=== PATIENT | female | born 1990 | race Caucasian/White ===

== ENCOUNTER 2018-12-08 23:49 | Emergency (ER) | payer BC, OTHER ==
--- NOTE | 2018-12-09 00:33 | ED ---
Female Urogenital HPI - General Chief complaint: Vaginal Bleeding Stated complaint: 5 wks preg bleeding Time Seen by Provider: 12/09/18 00:07 Source: patient, family Mode of arrival: ambulatory Limitations: no limitations - History of Present Illness Initial comments: Rosy is a female who believes she is currently 5-6 weeks , has not had any pre- care yet. She reports she began having dark vaginal bleeding and some lower abdominal cramping earlier today. She reports she's passed small clots but nothing that she places product of conception. Patient reports that the spotting has continued throughout the evening which prompted her to come to the ER for evaluation. Patient has not seen an OB or had an ultrasound of this yet. She is uncertain of what her blood type is, she is uncertain if she received rhogam her previous . - Related Data Allergies Allergy/AdvReac Type Severity Reaction Status Date / Time No Known Allergies Allergy Verified 12/08/18 23:56 Review of Systems ROS Statement: Those systems with pertinent positive or pertinent negative responses have been documented in the HPI. ROS Other: All systems not noted in ROS Statement are negative. Past Medical History Past Medical History: No Reported History History of Any Multi-Drug Resistant Organisms: None Reported Additional Past Surgical History / Comment(s): breast reduction Past Psychological History: No Psychological Hx Reported Smoking Status: Never smoker Past Alcohol Use History: None Reported Past Drug Use History: None Reported General Exam - General Exam Comments Initial Comments: Physical Exam GENERAL: Patient is well-developed and well-nourished. Patient is nontoxic and well- hydrated and is in no distress. HENT: Normocephalic, Atraumatic. EYES: PERRL, EOMI PULMONARY: Unlabored respirations. No audible rales rhonchi or wheezing was noted. CARDIOVASCULAR: There is a regular rate and rhythm without any murmurs gallops or rubs. ABDOMEN: Soft and nontender with normal bowel sounds. SKIN: Skin is clear with no lesions or rashes and otherwise unremarkable. : Normal External genitalia Dark blood and vaginal vault Closed cervical os, no active bleeding, no chandelier sign or tenderness to palpation of the bilateral ovaries NEUROLOGIC: Patient is alert and oriented x3. Moving all extremities spontaneously MUSCULOSKELETAL: Normal extremities with adequate strength and full range of motion. No lower extremity swelling or edema. No calf tenderness. PSYCHIATRIC: Normal psychiatric evaluation. Limitations: no limitations Limitations: no limitations Course Vital Signs 12/08/18 12/09/18 23:51 01:49 Temperature 98.4 F 98.3 F Pulse Rate 96 72 Respiratory 20 18 Rate Blood Pressure 150/83 137/84 O2 Sat by Pulse 100 99 Oximetry Medical Decision Making - Medical Decision Making The patient was seen and evaluated history is obtained from the patient and review of medical record Vital signs stable Patient with a positive test last week, no care yet presenting with dark bleeding Patient was last sexually active 2-3 days ago Patient has no concern for sexual transmitted infections Labs, US ordered BHCG 429 US with no definitive - noted corpus leutum cyst Results discussed with patient, she was advised to follow up with PCP or OB for repeat BHCG levels Return parameters discussed All questions pertaining to care answered and the patient was discharged home in stable condition. - Lab Data Lab Results 12/09/18 12/09/18 12/09/18 Range/Units 00:25 00:25 00:25 HCG, Quant 429.4 mIU/mL Trichomonas Ag (Rapid) Negative (Negative) Blood Type A Positive Blood Type Recheck No Disposition Clinical Impression: Vaginal bleeding affecting early Disposition: HOME SELF-CARE Instructions (If sedation given, give patient instructions): Threatened Miscarriage (ED) Additional Instructions: Your BHCG ( hormone) is 429 today, this needs to continue to be monitored by your PCP or OB Is patient prescribed a controlled substance at d/c from ED?: No Referrals: Trixie Hannon MD [Primary Care Provider] - 1-2 days
--- NOTE | 2018-12-09 01:33 | US ---
EXAM: US , Transvaginal CLINICAL HISTORY: ITS.REASON US Reason: pain TECHNIQUE: Real-time transvaginal obstetrical ultrasound of the maternal pelvis and a first trimester with image documentation. Transvaginal imaging was used for better evaluation of the fetus and adnexa. COMPARISON: No relevant prior studies available. FINDINGS: 2 mm nonspecific cystic focus in the endometrium. No definite intrauterine gestation. No adnexal mass. Hemorrhagic corpus luteum cyst in the left ovary measuring 2 cm. No free fluid. Right ovary is unremarkable. IMPRESSION: Tiny cystic focus in the endometrium is nonspecific. No definite intrauterine gestation at this time. No adnexal mass. Hemorrhagic left adnexal corpus luteum cyst. MTDD
[2018-12-09 02:04] VITALS: BP 137/84; PULSE 72; RESP 18; TEMP 98.3
[2018-12-11 15:45] LABS: C. trachomatis,PCR Negative (Neg,Equiv); Chlamydia trachomatis Source Vagina
[2018-12-11 15:49] LABS: N. gonorrhoeae,PCR Negative (Neg,Equiv); Neisseria Source Vagina
== END 2018-12-09 01:51 | disposition home or self-care (01) ==
LOC: EC 23:49
DX: O20.8 Other hemorrhage in early pregnancy (principal); N83.12 Corpus luteum cyst of left ovary
CPT/HCPCS: 36415; 76801; 76817; 84702; 86900; 86901; 87070; 87205; 87491; 87591; 87808; 99284

== ENCOUNTER → 2018-12-20 | Outpatient (CLI) | payer BC | END | disposition home or self-care (01) | LOC: LABWHC1 11:59 | PROVIDERS: ATTEND Obstetrics & Gynecology | DX: O20.0 Threatened abortion (principal); Z3A.00 Weeks of gestation of pregnancy not specified | CPT/HCPCS: 36415; 84702 ==

== ENCOUNTER → 2018-12-22 | Outpatient (CLI) | payer BC | LOC: LABWHC1 12:28 | PROVIDERS: ATTEND Obstetrics & Gynecology | DX: O20.0 Threatened abortion (principal) | CPT/HCPCS: 36415; 84702 ==

== ENCOUNTER 2018-12-26 16:44 | Observation (INO) | payer BC ==
[2018-12-26] MEDS ORDERED: SODIUM CHLORIDE 0.9% 1,000 ML IV ONE (16:58)
--- NOTE | 2018-12-26 17:34 | ED ---
Abdominal Pain HPI - General Chief Complaint: OB/Uterine Contractions Stated Complaint: ectopic Time Seen by Provider: 12/26/18 16:49 Source: patient, EMS, RN notes reviewed, old records reviewed Mode of arrival: EMS Limitations: no limitations - History of Present Illness Initial Comments: Patient is a 28-year-old female, G2, P1 approximately 7 weeks who presents emergency department today for ectopic . Patient was seen at [facility] and transferred here for PROGRAM ENGAGEMENT DIRECTOR consult. Patient reports that she's been having vaginal bleeding for the past 2 weeks. She's had intermittent follow-ups with her PROGRAM ENGAGEMENT DIRECTOR Dr. Avendaño and Dr. Galloway. She is not seen them in person but has had outpatient lab work to try and her hCG levels. Patient states that she has had left-sided abdominal pain. - Related Data Home Medications Medication Instructions Recorded Confirmed No Known Home Medications 12/26/18 12/26/18 Allergies Allergy/AdvReac Type Severity Reaction Status Date / Time No Known Allergies Allergy Verified 12/26/18 18:38 Review of Systems ROS Statement: Those systems with pertinent positive or pertinent negative responses have been documented in the HPI. ROS Other: All systems not noted in ROS Statement are negative. Past Medical History Past Medical History: No Reported History History of Any Multi-Drug Resistant Organisms: None Reported Additional Past Surgical History / Comment(s): breast reduction Past Psychological History: No Psychological Hx Reported Smoking Status: Current every day smoker Past Alcohol Use History: None Reported Past Drug Use History: None Reported General Exam - General Exam Comments Initial Comments: 28-year-old female. Alert and oriented 3. Patient appears in moderate discomfort. Limitations: no limitations General appearance: alert, in no apparent distress Head exam: Present: atraumatic, normocephalic, normal inspection Eye exam: Present: normal appearance, PERRL, EOMI. Absent: scleral icterus, conjunctival injection, periorbital swelling ENT exam: Present: normal exam, mucous membranes moist Neck exam: Present: normal inspection. Absent: tenderness, meningismus, lymphadenopathy Respiratory exam: Present: normal lung sounds bilaterally. Absent: respiratory distress, wheezes, rales, rhonchi, stridor Cardiovascular Exam: Present: regular rate, normal rhythm, normal heart sounds. Absent: systolic murmur, diastolic murmur, rubs, gallop, clicks GI/Abdominal exam: Present: tenderness (Left-sided abdominal tenderness), normal bowel sounds. Absent: soft, distended, guarding, rebound, rigid Back exam: Present: normal inspection Neurological exam: Present: alert, oriented X3, CN II-XII intact Psychiatric exam: Present: normal affect, normal mood Course Vital Signs 12/26/18 12/26/18 12/26/18 16:47 16:49 17:00 Temperature 98.1 F Pulse Rate 79 77 Respiratory 16 Rate Blood Pressure 140/81 127/83 O2 Sat by Pulse 100 100 99 Oximetry 12/26/18 12/26/18 12/26/18 17:30 18:00 18:30 Temperature Pulse Rate 68 68 87 Respiratory Rate Blood Pressure 125/77 127/70 123/69 O2 Sat by Pulse 98 98 97 Oximetry Medical Decision Making - Medical Decision Making 28-year-old female transferred from [facility] for ectopic . She is . Patient is approximately 7 weeks . Ultrasound performed earlier today showed findings compatible with a left adnexal live ectopic with pole demonstrating crown-rump length compatible with 6 weeks and 5 days. Heart rate was 132 beats were minute. This is favored to be paraovarian is there is minimal adjacent ovarian tissue. Her hemoglobin at this time is 13.0. Type and screen is obtained. Pain is managed after 4 mg of morphine from [facility]. She is reporting vaginal bleeding and heavy clots at this time. is a positive blood type. HCG level is 9600 at this time. Case discussed with Dr. Segundo who is discussing with on-call PROGRAM ENGAGEMENT DIRECTOR. Patient was evaluated by Dr. Galloway and will be going to the operating room this evening for laparoscopic ectopic removal - Radiology Data Radiology results: report reviewed Ultrasound shows ectopic at the left adnexa adjacent to the left ovary measured 2.9 x 2.0 x 2.17 m with a heart rate of 1 62 bpm. Disposition Clinical Impression: Ectopic Disposition: ADMITTED IP TO THIS HOSP Condition: Stable Is patient prescribed a controlled substance at d/c from ED?: No Referrals: Trixie Hannon MD [Primary Care Provider] - 1-2 days Time of Disposition: 19:27
[2018-12-26] MEDS ORDERED: MORPHINE SULFATE 4 MG/ML SYRINGE IVP STA (18:48)
--- NOTE | 2018-12-26 19:02 | US ---
EXAMINATION TYPE: Transabdominal DATE OF EXAM: 12/26/2018 6:34 PM COMPARISON: NONE CLINICAL HISTORY: Ectopic . Bleeding and pain. EXAM PERFORMED: Transabdominal (TA) EXAM MEASUREMENTS: GESTATIONAL AGE / DATING Physician Established: (7 weeks/5 days) EDC: 08/09/2019 Dates by LMP: (7 weeks/5 days) EDC: 08/09/2019 Dates by First Scan: Unable to date first scan. ( Dates by Current Scan for: (6 weeks/4 days) EDC: 08/17/2019 MATERNAL ANATOMY Uterus: 9.5 x 3.8 x 5.2 cm Right Ovary: 2.8 x 1.7 x 1.7cm Left Ovary: 1.8 x 1.7 x 1.6cm Post CDS / Adnexa: Viable ectopic left adnexa adjacent to left ovary 2.9 x 2.0 x 2.1cm with HR 162BPM . Presence of free fluid: No Presence of corpus luteal cyst: no GESTATION / SURVEY CRL: 0.67cm (6 weeks/4 days) Yolk Sac (normal less than 6mm): 3mm Heart Rate: 162 bpm Beta HcG (if available): Not available at this time IMPRESSION: VIABLE ECTOPIC LEFT ADNEXA ADJACENT TO LEFT OVARY 2.9 X 2.0 X 2.1CM; HR 162 BRM.
[2018-12-26] MEDS: SODIUM CHLORIDE 0.9% 1,000 ML IV SCH (19:11)
[2018-12-26] MEDS ORDERED: NALOXONE 0.4 MG/ML 1 ML VIAL IV PRN (19:27)
[2018-12-26] MEDS ORDERED: KETOROLAC 30 MG/ML 1 ML VIAL IVP PRN (19:27)
[2018-12-26] MEDS ORDERED: MORPHINE SULFATE 4 MG/ML SYRINGE IV PRN (19:27)
[2018-12-26] MEDS ORDERED: ONDANSETRON 4 MG/2 ML VIAL IVP PRN (19:27)
--- NOTE | 2018-12-26 19:44 | P.HPOB ---
History of Present Illness H&P Date: 12/26/18 Chief Complaint: Vaginal bleeding This is a 28-year-old 2 para 1001 woman with a last menstrual period unknown who had a positive test at home around approximately December 03. She has had intermittent vaginal bleeding. She presents today with worsening left lower abdominal pain. Beta hCGs drawn on 12/20/2018: 5280, 12/22: 6417, and today at 9664. Pelvic ultrasound confirms presence of a left adnexal ectopic measuring 2.9 cm in greatest diameter. There is a heart rate of approximately 160 bpm in this mass. There is no free fluid in the pelvis. Endometrial mildly thickened. Patient's social history is significant for previous normal spontaneous vaginal delivery 6 years ago. This is an unplanned and she is not using contraception. She otherwise is healthy using only an occasional inhaler for asthma. Review of Systems Constitutional: Denies chills, Denies fever Cardiovascular: Denies chest pain, Denies shortness of breath Respiratory: Denies cough Gastrointestinal: Reports abdominal pain, Denies BRBPR, Denies change in bowel habits, Denies nausea, Denies vomiting Genitourinary: Reports abnormal vaginal bleeding, Reports Integumentary: Denies rash Neurological: Denies headaches Hematologic/Lymphatic: Denies easy bleeding, Denies easy bruising Past Medical History Past Medical History: No Reported History, Asthma History of Any Multi-Drug Resistant Organisms: None Reported Additional Past Surgical History / Comment(s): breast reduction Past Psychological History: No Psychological Hx Reported Smoking Status: Current every day smoker Past Alcohol Use History: None Reported Past Drug Use History: None Reported Medications and Allergies Home Medications Medication Instructions Recorded Confirmed Type No Known Home Medications 12/26/18 12/26/18 History Allergies Allergy/AdvReac Type Severity Reaction Status Date / Time No Known Allergies Allergy Verified 12/26/18 18:38 Exam Vital Signs Temp Pulse Resp BP Pulse Ox 12/26/18 18:30 87 123/69 97 12/26/18 18:00 68 127/70 98 12/26/18 17:30 68 125/77 98 12/26/18 17:00 77 127/83 99 12/26/18 16:49 100 12/26/18 16:47 98.1 F 79 16 140/81 100 Intake and Output 12/26/18 12/26/18 12/26/18 06:59 14:59 22:59 Other: Weight 86.183 kg In general this is a pleasant female in no acute distress. HEENT exam is unremarkable. Breathing is unlabored and the heart is a regular rate and rhythm. The abdomen is soft and nontender with no rebound, no guarding and no flank pain. Pelvic examination is deferred however was performed recently at the [facility] emergency room and was unremarkable. Neurologically she is grossly intact and behavior and affect are normal. Skin is free of any gross lesions or rash. Results US - abdomen: report reviewed Assessment and Plan (1) Ectopic Current Visit: Yes Status: Acute Code(s): O00.90 - UNSPECIFIED ECTOPIC WITHOUT INTRAUTERINE SNOMED Code(s): 10175840 (2) Vaginal bleeding affecting early Current Visit: No Status: Acute Code(s): O20.8 - OTHER HEMORRHAGE IN EARLY SNOMED Code(s): 545137151 Plan: This is a 28-year-old 2 para 1001 woman with a left ectopic . I reviewed the findings on ultrasound and hCG with the patient in detail. Based on the elevated hCG level I do not believe she is appropriate candidate for methotrexate. I have recommended diagnostic laparoscopy with probable left salpinx and objectively, possible left salpingostomy possible laparotomy and or other indicated surgeries. I reviewed the risks of this procedure which include bleeding, transfusion, laparotomy, damage to bowel, bladder, ureters, uterus, ovaries and other pelvic or abdominal structures. Patient understands these risks, all questions are answered and consent is obtained. The OR team has been notified and we will proceed as planned.
[2018-12-26] MEDS ORDERED: MIDAZOLAM 2 MG/2 ML VIAL ONE (20:23)
[2018-12-26] MEDS ORDERED: ROCURONIUM BROMIDE 10 MG/ML 10 ML VIAL IV ONE (20:23)
[2018-12-26] MEDS ORDERED: KETOROLAC 30 MG/ML 1 ML VIAL ONE (20:23)
[2018-12-26] MEDS ORDERED: SUCCINYLCHOLINE CHLORIDE 100 MG/5 ML SYR IV ONE (20:23)
[2018-12-26] MEDS ORDERED: NEOSTIGMINE 1 MG/ML 10 ML VIAL ONE (20:23)
[2018-12-26] MEDS ORDERED: ONDANSETRON 4 MG/2 ML VIAL ONE (20:23)
[2018-12-26] MEDS ORDERED: HYDROmorphone (PF) 1 MG/ML ONE (20:23)
[2018-12-26] MEDS ORDERED: DEXAMETHASONE SOD PHOS (MDV) 100 MG/10 ML VIAL ONE (20:23)
[2018-12-26] MEDS ORDERED: fentaNYL (PF) 50 MCG/ML 2 ML AMP ONE (20:23)
[2018-12-26] MEDS ORDERED: GLYCOPYRROLATE 0.2 MG/ML 2 ML VIAL ONE (20:23)
[2018-12-26] MEDS ORDERED: LIDOCAINE 1% INJ 10MG/ML (20 ML MDV) ONE (20:23)
[2018-12-26] MEDS ORDERED: PROPOFOL 10 MG/ML 20 ML VIAL IV ONE (20:23)
[2018-12-26] MEDS ORDERED: LACTATED RINGERS 1,000 ML IV ONE (20:27)
[2018-12-26] MEDS ORDERED: ceFAZolin 1,000 MG VIAL IVPB ONE (20:42)
[2018-12-26] MEDS ORDERED: BUPIVACAINE (PF) 0.25% 30 ML VIAL SQ ONE ×2 (20:48→21:13)
--- NOTE | 2018-12-26 21:16 | P.OP ---
Date of Procedure: 12/26/18 Preoperative Diagnosis: Left ectopic Postoperative Diagnosis: Same Procedure(s) Performed: Diagnostic laparoscopy with left salpingectomy Anesthesia: KIANA Surgeon: Joan Galloway Estimated Blood Loss (ml): 5 IV fluids (ml): 500 Urine output (ml): 50 Pathology: other (Left fallopian tube) Condition: stable Disposition: PACU Indications for Procedure: Left adnexal ectopic with beta hCG greater than 9000 and heart tones present Operative Findings: Distorted and enlarged left fallopian tube consistent with ectopic . No hemoperitoneum. Normal-appearing left ovary, right fallopian tube and right ovary. Description of Procedure: After the patient was brought up from the emergency room, she was taken to the operating room where anesthetic was administered without incident. She was in positioned, prepped and draped in the dorsal lithotomy position. Bladder was drained for approximately 50 mL of clear urine. Speculum was placed in the vagina and the cervix was grasped anteriorly with a single-tooth tenaculum. Holden uterine manipulator was placed. Gloves were changed and attention was turned to the abdomen. A 10 mm infraumbilical skin incision was made. The abdomen was grasped and elevated. The various needle was inserted without difficulty. Saline drop test indicated intraperitoneal placement. Initial filling pressure with CO2 gas was 0 mm. The abdomen was then insufflated to a total filling pressure of 15 mm. The platelets optical trocar was then utilized to introduce a 10 mm scope. Intraperitoneal placement was noted. The uterus was elevated and the above findings were noted. There was a small clot noted in the pelvis but no other hemoperitoneum. The patient was then placed in moderate Trendelenburg. Under direct visualization a 5 mm suprapubic port and 10 mm right sided port were placed. The LigaSure cautery device was introduced. The left fallopian tube was elevated and the left mesosalpinx was sequentially cauterized and cut amputating the fallopian tube and ectopic . This was placed into an Endo Catch bag and was removed intact. The surgical site was inspected and noted to be hemostatic. The abdomen was desufflated and surgical site was again inspected with no active bleeding noted. Under direct visualization the suprapubic and right sided ports were removed. The abdomen was desufflated of CO2 gas and the camera was removed. All ports were closed with 4-0 Vicryl suture in a subcuticular fashion. Entrance removed from the vagina. Patient was awoken from anesthetic without incident and transported to recovery in stable condition. All counts reported to me as correct by the operating room staff
[2018-12-26] MEDS: HYDROmorphone 1 MG/ML 1 ML SYRINGE IVP ONE ×2 (21:32→21:36)
[2018-12-26] MEDS ORDERED: diphenhydrAMINE 50 MG/ML 1 ML VIAL IVP ONE (21:48)
[2018-12-26 22:22] VITALS: BMI 31.6
[2018-12-26] MEDS ORDERED: IBUPROFEN 800 MG TAB PO PRN (22:48)
[2018-12-26] MEDS ORDERED: ACETAMINOPHEN IV (For NPO) 1,000 MG in EMPTY BAG 1 BAG IVPB ONE (23:00)
[2018-12-26 23:47] VITALS: RESP 18
[2018-12-27 05:34] VITALS: TEMP 98.2
[2018-12-27] MEDS: SODIUM CHLORIDE 0.9% 1,000 ML IV SCH (05:43)
[2018-12-27 08:19] VITALS: BP 125/74; PULSE 87
== END 2018-12-27 07:35 | disposition home or self-care (01) ==
LOC: EC 16:44 → 4FBP 19:27
PROVIDERS: ADMIT Obstetrics & Gynecology; ATTEND Obstetrics & Gynecology
DX: O00.102 Left tubal pregnancy without intrauterine pregnancy (principal); J45.909 Unspecified asthma, uncomplicated; F17.210 Nicotine dependence, cigarettes, uncomplicated; K04.7 Periapical abscess without sinus
CPT/HCPCS: 59151; 96361; 96374; 99285; 86900; 86901; 88305; 76801; 76817; G0378 ×2; J2250; J2270; J1200; J2710; J2405; J0690; J2001; J3010; J1885; J1170; J1100; J0131; J0330; J2704

== ENCOUNTER 2023-11-13 15:00 | Emergency (ER) | payer BC, OTHER ==
--- NOTE | 2023-11-13 15:14 | ED ---
Female Urogenital HPI - General Chief complaint: Urogenital Stated complaint: STD Test Time Seen by Provider: 11/13/23 15:04 Source: patient, RN notes reviewed Mode of arrival: ambulatory Limitations: no limitations - History of Present Illness Initial comments: Patient is a 33-year-old female presented ER with chief complaint of vaginal discharge. Patient reports that she is having a yellow foul-smelling discharge for over a week. Patient now is endorsing abdominal cramping. Patient states that she is now tender and itchy to her peritoneal area. Patient reports last week she believes she was running a fever. She believes she was exposed to an STI but is not sure which one. Denies any chest pain, shortness of breath, peripheral edema. Last Menstrual Period: 10/30/23 - Related Data Previous Rx's Medication Instructions Recorded Ibuprofen 800 mg PO Q8HR PRN #30 tablet 12/26/18 Doxycycline [Vibramycin] 100 mg PO BID 14 Days #28 capsule 11/13/23 metroNIDAZOLE [Flagyl] 500 mg PO BID 14 Days #28 tab 11/13/23 Allergies Allergy/AdvReac Type Severity Reaction Status Date / Time Penicillins Allergy Rash/Hives Verified 11/13/23 15:04 Review of Systems ROS Statement: Those systems with pertinent positive or pertinent negative responses have been documented in the HPI. ROS Other: All systems not noted in ROS Statement are negative. Past Medical History Past Medical History: No Reported History, Asthma History of Any Multi-Drug Resistant Organisms: None Reported Additional Past Surgical History / Comment(s): breast reduction Past Psychological History: No Psychological Hx Reported Past Alcohol Use History: None Reported Past Drug Use History: None Reported - Past Family History Father Family Medical History: No Reported History General Exam Limitations: no limitations General appearance: alert, in no apparent distress Respiratory exam: Present: normal lung sounds bilaterally. Absent: respiratory distress, wheezes, rales, rhonchi, stridor Cardiovascular Exam: Present: regular rate, normal rhythm, normal heart sounds. Absent: systolic murmur, diastolic murmur, rubs, gallop, clicks GI/Abdominal exam: Present: soft, tenderness (suprapubic), normal bowel sounds. Absent: distended, guarding, rebound, rigid External exam: Present: normal external exam Speculum exam: Present: cervical discharge (thick white) By manual exam: Present: cervical motion tenderness Neurological exam: Present: alert, oriented X3, CN II-XII intact Psychiatric exam: Present: normal affect, normal mood Skin exam: Present: warm, dry, intact, normal color. Absent: rash Course Vital Signs 11/13/23 11/13/23 15:01 16:24 Temperature 98.2 F 98.6 F Pulse Rate 100 86 Respiratory 20 20 Rate Blood Pressure 163/100 146/90 O2 Sat by Pulse 99 99 Oximetry - Reevaluation(s) Reevaluation #1: 11/13/23 15:34 Pelvic exam completed. Chaperoned by Aditi Gaona RN Medical Decision Making - Medical Decision Making Was pt. sent in by a medical professional or institution (, SUDHEER, LAMINATING MACHINE OFFBEARER, urgent care, hospital, or group home...) When possible be specific @ -No Did you speak to anyone other than the patient for history (EMS, parent, family, police, friend...)? What history was obtained from this source @ -No Did you review nursing and triage notes (agree or disagree)? Why? @ -I reviewed and agree with nursing and triage notes Were old charts reviewed (outside hosp., previous admission, EMS record, old EKG, old radiological studies, urgent care reports/EKG's, group home records)? Report findings @ -No old charts were reviewed Differential Diagnosis (chest pain, altered mental status, abdominal pain women, abdominal pain men, vaginal bleeding, weakness, fever, dyspnea, syncope, headache, dizziness, GI bleed, back pain, seizure, CVA, palpatations, mental health, musculoskeletal)? @ -Chlamydia, gonorrhea, Trichomonas, UTI, HPV list is not meant to be all- inclusive EKG interpreted by me (3pts min.). @ -None X-rays interpreted by me (1pt min.). @ -None done CT interpreted by me (1pt min.). @ -None done U/S interpreted by me (1pt. min.). @ -None done What testing was considered but not performed or refused? (CT, X-rays, U/S, labs)? Why? @ -Patient refused HIV and syphilis testing. What meds were considered but not given or refused? Why? @ -None Did you discuss the management of the patient with other professionals (professionals i.e. SUDHEER Holder, LAMINATING MACHINE OFFBEARER, lab, RT, psych nurse, social group worker, postal supervisor, teacher, mobile patrol officer, sample case porter)? Give summary @ -No Was smoking cessation discussed for >3mins.? @ -No Was critical care preformed (if so, how long)? @ -No Were there social determinants of health that impacted care today? How? (Homelessness, low income, unemployed, alcoholism, drug addiction, transportation, low edu. Level, literacy, decrease access to med. care, senior care, rehab)? @ -No Was there de-escalation of care discussed even if they declined (Discuss DNR or withdrawal of care, Hospice)? DNR status @ -No What co-morbidities impacted this encounter? (DM, HTN, Smoking, COPD, CAD, Cancer, CVA, ARF, Chemo, Hep., AIDS, mental health diagnosis, sleep apnea, morb id obesity)? @ -None Was patient admitted / discharged? Hospital course, mention meds given and route, prescriptions, significant lab abnormalities, going to OR and other pertinent info. @ -Discharge. Patient is a 33-year-old female presented ER with chief complaint of vaginal discharge. Vitals stable. History and physical exam were completed. Suprapubic abdominal pain present. Pelvic and bimanual exam completed. Positive cervical motion tenderness. Patient also had thick white cervical discharge. Exam chaperoned by Aditi Gaona RN. Urinalysis negative for signs of infection. Trichomonas positive. I discussed labs findings with patient. Patient received IM rocephin, doxycycline and flagyl in ER. I advised her to have all intimate partners treated. Return parameters were discussed. Patient prescribed doxycycline and flagyl. I educated patient on importance of completing full course of antibiotics. Patient will be discharged in stable condition with follow-up to PCP/IT ARCHITECTURE CONSULTANT. Patient expressed understanding and agreement with care plan. Undiagnosed new problem with uncertain prognosis? @ -No Drug Therapy requiring intensive monitoring for toxicity (Heparin, Nitro, Insulin, Cardizem)? @ -No Were any procedures done? @ -No Diagnosis/symptom? @ -Trichomonas/ STD exposure Acute, or Chronic, or Acute on Chronic? @ -Acute Uncomplicated (without systemic symptoms) or Complicated (systemic symptoms)? @ -Uncomplicated Side effects of treatment? @ -No Exacerbation, Progression, or Severe Exacerbation? @ -No Poses a threat to life or bodily function? How? (Chest pain, [place], [place], pneumonia, PE, COPD, DKA, ARF, appy, cholecystitis, CVA, Diverticulitis, Homicidal, Suicidal, threat to staff... and all critical care pts) @ -No - Lab Data Lab Results 11/13/23 11/13/23 11/13/23 Range/Units 15:29 15:29 15:29 Urine Color Colorless Urine Appearance Cloudy H (Clear) Urine pH 5.5 (5.0-8.0) Ur Specific [place] 1.008 (1.001-1.035) Urine Protein Negative (Negative) Urine Glucose (UA) Negative (Negative) Urine Ketones Negative (Negative) Urine Blood Negative (Negative) Urine Nitrite Negative (Negative) Urine Bilirubin Negative (Negative) Urine Urobilinogen <2.0 (<2.0) mg/dL Ur Leukocyte Esterase Large H (Negative) Urine RBC 5 (0-5) /hpf Urine WBC 14 H (0-5) /hpf Ur Squamous Epith Cells 5 H (0-4) /hpf Urine Bacteria Rare H (None) /hpf Urine HCG, Qual Not Detected (Not Detectd) Trichomonas Ag (Rapid) Positive H (Negative) Disposition Clinical Impression: Trichomoniasis, STD exposure Disposition: HOME SELF-CARE Instructions (If sedation given, give patient instructions): Sexually Transmitted Diseases (ED), Trichomoniasis (ED) Additional Instructions: Please complete full course of antibiotics. You will be contacted if any other tests are positive. Please follow-up with PCP/IT ARCHITECTURE CONSULTANT the next 1-2 days. Please return to ER for any new or worsening symptoms. Prescriptions: metroNIDAZOLE [Flagyl] 500 mg PO BID 14 Days #28 tab Doxycycline [Vibramycin] 100 mg PO BID 14 Days #28 capsule Is patient prescribed a controlled substance at d/c from ED?: No Referrals: None,Stated [Primary Care Provider] - 1-2 days Time of Disposition: 16:11
[2023-11-13 15:22] VITALS: RESP 20
[2023-11-13] MEDS ORDERED: DOXYCYCLINE 100 MG CAP PO STA (15:34)
[2023-11-13] MEDS ORDERED: cefTRIAXone 1,000 MG VIAL (IM USE) IM STA (15:34)
[2023-11-13 16:00] LABS: Appearance,Urine Cloudy (Clear); Bacteria,Urine Rare /hpf; Bilirubin,Urine Negative (Negative); Blood,Urine Negative (Negative); Color,Urine Colorless; Glucose,Urine (UA) Negative (Negative); Ketones,Urine Negative (Negative); Leukocyte Esterase,Urine Large (Negative); Nitrite,Urine Negative (Negative); PH, Urine 5.5 (5.0-8.0); Protein,Urine Negative (Negative); RBC,Urine 5 /hpf (0-5); Specific Gravity,Urine 1.008 (1.001-1.035); Squamous Epithelial Cell,Urine 5 /hpf (0-4); Urobilinogen,Urine <2.0 mg/dL (<2.0); WBC,Urine 14 /hpf (0-5)
[2023-11-13] MEDS ORDERED: metroNIDAZOLE 500 MG TAB PO STA (16:02)
[2023-11-13 16:30] VITALS: BP 146/90; PULSE 86; TEMP 98.6
[2023-11-14 14:14] LABS: N. gonorrhoeae,PCR Negative (Negative)
[2023-11-14 14:49] LABS: C. trachomatis,PCR Negative (Negative)
== END 2023-11-13 16:25 | disposition home or self-care (01) ==
LOC: EC 15:00
DX: A59.9 Trichomoniasis, unspecified (principal); Z20.2 Contact with and (suspected) exposure to infections with a predominantly sexual mode of transmission; J45.909 Unspecified asthma, uncomplicated; Z88.0 Allergy status to penicillin
CPT/HCPCS: 81001; 81025; 87808; 87491; 87591; 87086; 99283; 96372; J0696